=== PATIENT | female | born 1980 | race Caucasian/White ===

== ENCOUNTER 2017-11-08 12:22 | Emergency (ER) | payer MEDICAID ==
[~2017-11-08] VITALS: Ht 170.2 cm; Wt 94.3 kg
[2017-11-08 12:31] VITALS: BP 131/67
== END 2017-11-08 13:14 | disposition home or self-care (01) ==
LOC: ER 12:24
DX: J31.0 Chronic rhinitis (principal); J02.9 Acute pharyngitis, unspecified; R05 Cough; F17.210 Nicotine dependence, cigarettes, uncomplicated
CPT/HCPCS: 99283; A4606; Z7610

== ENCOUNTER 2018-01-15 13:44 | Emergency (ER) | payer BC, OTHER ==
[~2018-01-15] VITALS: Ht 170.2 cm; Wt 94.3 kg
[2018-01-15 13:52] VITALS: BP 122/77
[2018-01-15] MEDS ORDERED: ACETAMINOPHEN ES 500 MG TABLET ONE (14:23)
[2018-01-15] MEDS: ACETAMINOPHEN 325 MG TABLET PO ONE (14:26)
== END 2018-01-15 15:36 | disposition home or self-care (01) ==
LOC: ER 13:45
DX: M79.671 Pain in right foot (principal); M19.071 Primary osteoarthritis, right ankle and foot; F17.200 Nicotine dependence, unspecified, uncomplicated; Z90.89 Acquired absence of other organs; W01.0XXA Fall on same level from slipping, tripping and stumbling without subsequent striking against object, initial encounter; Y93.89 Activity, other specified; Y92.89 Other specified places as the place of occurrence of the external cause; Y99.8 Other external cause status
CPT/HCPCS: 73630-TC; A4606; Z7610

== ENCOUNTER 2018-02-15 09:19 | Emergency (ER) | payer BC ==
[~2018-02-15] VITALS: Ht 170.2 cm; Wt 95.3 kg
--- NOTE | 2018-02-15 09:25 | NUR ---
PRESENTS TO ER C/O MIDSTERNAL CHEST PAIN ASSOCIATED WITH NAUSEA AND VOMITING. ALSO C/O ABD PAIN AND BACK PAIN. A/OX 4. BREATHING EVEN AND UNLABORED. NO SOB, NAD, VITALS STABLE. SKIN WARM AND DRY. SAFETY AND COMFORT MEASURES IN PLACE. AWAITING MD ORDERS.
[2018-02-15] MEDS ORDERED: MORPHINE SULFATE INJ 4 MG/ML DISP.SYRIN ONE (09:43)
[2018-02-15] MEDS ORDERED: ONDANSETRON HCL/PF 4 MG/2 ML VIAL ONE (09:43)
--- NOTE | 2018-02-15 09:50 | NUR ---
NEW IV STARTED ON RAC, 20G. BLOOD DRAWN AND SENT TO LAB.
--- NOTE | 2018-02-15 09:56 | NUR ---
PATIENT MEDICATED PER MD ORDERS.
[2018-02-15 09:57] LABS: BASOPHILS % (AUTO) 0.5 % (0.0-2.0); EOSINOPHILS % (AUTO) 1.3 % (0.0-6.0); HEMATOCRIT 40 % (33-45); HEMOGLOBIN 13.4 g/dL (11.5-14.8); LYMPHOCYTES # (AUTO) 1.4 /CMM (0.8-4.8); LYMPHOCYTES % (AUTO) 20.5 % (20.0-44.0); MEAN CORPUSCULAR HGB CONC 34 g/dl (31.0-36.0); MEAN CORPUSCULAR VOLUME 80 fL (82-100); MONOCYTES # (AUTO) 0.5 /CMM (0.1-1.30); MONOCYTES % (AUTO) 7.6 % (2.0-12.0); NEUTROPHILS # (AUTO) 4.8 /CMM (1.8-8.9); NEUTROPHILS % (AUTO) 70.1 % (43.0-81.0); PLATELET COUNT (AUTO) 210 /CMM (150-450); RDW COEFFICIENT OF VARIATION 13.3 (11.5-15.0); RED BLOOD CELL COUNT(AUTO) 4.96 MIL/uL (4.0-5.2); WHITE BLOOD COUNT (AUTO) 6.8 K/uL (4.3-11.0)
[2018-02-15] MEDS ORDERED: ONDANSETRON HCL/PF 4 MG/2 ML VIAL IVP ONE (10:00)
[2018-02-15] MEDS ORDERED: IV NS 0.9% 1,000 ML BAG IV ONE (10:00)
[2018-02-15] MEDS ORDERED: MORPHINE SULFATE INJ 2 MG/ML DISP.SYRIN IV ONE (10:00)
--- NOTE | 2018-02-15 10:03 | NUR ---
PATIENT TAKEN TO RADIOLOGY VIA STRETCHER.
[2018-02-15 10:13] LABS: CALCIUM, SERUM 8.6 mg/dL (8.5-10.1); CARBON DIOXIDE 28 mmol/L (21-32); CHLORIDE 107 mmol/L (98-107); CREATININE 0.7 mg/dL (0.6-1.3); GLUCOSE 116 mg/dL (74-106); POTASSIUM 4.3 mmol/L (3.5-5.1); SODIUM SERUM 140 mmol/L (136-145); UREA NITROGEN, BLOOD 12 mg/dL (7-18)
--- NOTE | 2018-02-15 10:16 | NUR ---
PATIENT RETURNED FROM RADIOLOGY IN STABLE CONDITION.
[2018-02-15 10:18] LABS: ALANINE AMINOTRANSFERASE 20 U/L (12-78); ALBUMIN 3.4 g/dL (3.4-5.0); ALKALINE PHOSPHATASE 64 U/L (46-116); ASPARTATE AMINOTRANSFERASE 11 U/L (15-37); BILIRUBIN,DIRECT 0.1 mg/dL (0.0-0.2); BILIRUBIN,TOTAL 0.2 mg/dL (0.2-1.0); LIPASE 66 U/L (73-393)
[2018-02-15 10:25] LABS: INR 0.96 (0.87-1.13); TROPONIN I < 0.017 ng/mL (0.00-0.056)
[2018-02-15 10:52] LABS: APPEARANCE,URINE Clear (CLEAR); BILIRUBIN,URINE Negative (NEGATIVE); BLOOD, URINE Negative Ery/uL (NEGATIVE); COLOR,URINE Yellow (YELLOW); KETONES,URINE Negative (NEGATIVE); LEUKOCYTE ESTERASE ,URINE Negative (NEGATIVE); NITRITE, URINE Negative (NEGATIVE); PROTEIN,URINE Negative (NEGATIVE); UGLUCOSE Negative (NEGATIVE); UROBILINOGEN,URINE 0.2 EU/dL (0.2)
[2018-02-15] MEDS ORDERED: METOCLOPRAMIDE HCL 10 MG/2 ML VIAL IV ONE (11:30)
[2018-02-15] MEDS ORDERED: METOCLOPRAMIDE HCL 10 MG/2 ML VIAL ONE (11:37)
[2018-02-15 12:17] VITALS: BP 139/84
--- NOTE | 2018-02-15 12:18 | NUR ---
IV removed. Catheter intact and site benign. Pressure and 4x4 applied to site. No bleeding noted. Patient discharged to home in stable condition. Written and verbal after care instructions given. Patient verbalizes understanding of instruction.
== END 2018-02-15 12:18 | disposition home or self-care (01) ==
LOC: ER 09:20
DX: K62.89 Other specified diseases of anus and rectum (principal); R10.13 Epigastric pain; R11.2 Nausea with vomiting, unspecified; R06.02 Shortness of breath; F17.200 Nicotine dependence, unspecified, uncomplicated; R42 Dizziness and giddiness; Z60.2 Problems related to living alone
CPT/HCPCS: 36415; 71045; 74176; 80048; 80076; 81001; 83690; 84484; 84703; 85025; 85730; 93005; 96361; 96374; 96375; 99285; A4606; J2270; J2405; J2765; J7030; Z7610; 81000-TC